=== PATIENT | female | born 1990 | race Caucasian/White ===

== ENCOUNTER 2016-08-18 14:29 | Emergency (ER) | payer OTHER ==
[2016-08-18] MEDS ORDERED: NS 0.9% 1000 ML* 1,000 ML IV ONE ×2 (14:46→15:42)
[2016-08-18] MEDS ORDERED: Ondansetron INJ* 2 MG/ML VIAL IV ONE (14:47)
[2016-08-18] MEDS ORDERED: Ketorolac INJ* 30 MG/ML 1 ML VIAL IV PUSH ONE (14:47)
--- NOTE | 2016-08-18 14:52 | UC ---
Headache HPI - HPI Summary HPI Summary: Patient is recovering form GI bug, started with a migraine 3 days aog, not well controlled with the usual imitrex. pain starts behind head radiates up to the right yazdanism. very nauseated has been vomiting this morning. feels flushed and shaky - History Of Current Complaint Chief Complaint: UCGeneralIllness Stated Complaint: HEAD PRESSURE Time Seen by Provider: 08/18/16 14:39 Hx Obtained From: Patient Hx Last Menstrual Period: 08/06/16 ?: No Onset/Duration: Sudden Onset, Lasting Days Onset Of Symptoms: Gradual, Still Present Initially Headache Was: Moderate Currently Pain Is: Severe Pain Intensity: 8 Pain Scale Used: 0-10 Numeric Timing: Constant, Days Character: Pressure, Migraine Location of Headache: Temporal, Occipital Aggravating Factor: Exertion, Position Change, Bright Lights Allevating Factors: Nothing Associated Signs And Symptoms: Positive: Nausea, Vomiting - Risk Factors SAH Risk Factors: Negative Meningitis Risk Factors: Negative - Allergies/Home Medications Allergies/Adverse Reactions: Allergies Allergy/AdvReac Type Severity Reaction Status Date / Time No Known Allergies Allergy Verified 08/18/16 14:39 Home Medications: Home Medications Oral Contraceptives DAILY 08/18/16 [History] SUMAtriptan TAB* [Imitrex TAB*] 50 mg PO 08/18/16 [History] PMH/Surg Hx/FS Hx/Imm Hx Previously Healthy: Yes - Surgical History Surgical History: Yes Surgery Procedure, Year, and Place: facial surgery. wisdom teeth. septic joint in the hand secondary to a cat bite - Family History Known Family History: Negative: Cardiac Disease, Hypertension - Social History Alcohol Use: Occasionally Substance Use Type: None Smoking Status (MU): Never Smoked Tobacco Review of Systems Constitutional: Negative Skin: Negative Eyes: Photophobia ENT: Negative Respiratory: Negative Cardiovascular: Negative Gastrointestinal: Vomiting Genitourinary: Negative Motor: Negative Neurovascular: Negative Musculoskeletal: Myalgia Neurological: Headache Psychological: Negative All Other Systems Reviewed And Are Negative: Yes Physical Exam Triage Information Reviewed: Yes Appearance: Well-Nourished, Ill-Appearing, Pain Distress Vital Signs: Initial Vital Signs Temp 98.6 F 08/18/16 14:30 Pulse 75 08/18/16 14:30 Resp 16 08/18/16 14:30 BP 130/87 08/18/16 14:30 Pulse Ox 100 08/18/16 14:30 Vital Signs Reviewed: Yes Eye Exam: Normal Eyes: Positive: Conjunctiva Clear ENT Exam: Normal ENT: Positive: Hearing grossly normal, Pharynx normal, TMs normal Dental Exam: Normal Neck: Positive: Supple, No Lymphadenopathy, Tenderness @ - long right trapezius Respiratory Exam: Normal Respiratory: Positive: Chest non-tender, Lungs clear, Normal breath sounds Cardiovascular Exam: Normal Cardiovascular: Positive: RRR, No Murmur, Pulses Normal Abdominal Exam: Other Abdomen Description: Positive: No Organomegaly, Soft, Bruit, Other: - epigastric tenderness Bowel Sounds: Positive: Present Musculoskeletal Exam: Normal Musculoskeletal: Positive: Strength Intact, ROM Intact, No Edema Neurological Exam: Normal Neurological: Positive: Alert, Muscle Tone Normal Psychological Exam: Normal Skin Exam: Normal Re-Evaluation - Re-Evaluation First Eval Re-Evaluation Time: 15:45 Change: Improved - reports slight improvement after 1st bag of fluids and meds, will do another bag Headache Course/Dx - Course Course Of Treatment: hx obtianed, exam performed, meds reviewed and iv fluids, zofranand toradol given ofr migraine relief, reported some improvement, encouraged to go home and rest. follow up with any worsening symptoms - Differential Dx/Diagnosis Differential Diagnosis/HQI/PQRI: Epidural Hematoma, Migraine, Sinus Headache, Temporal Arteritis, Tension Headache, Viral Syndrome Provider Diagnoses: MIgraine Discharge - Discharge Plan Condition: Stable Disposition: HOME Patient Education Materials: Migraine Headache (ED) Referrals: Bonita Ayala MD [Primary Care Provider] - Additional Instructions: Go home and rest, dark room, quiet, do not take ibuprofen products until 9 pm tonight. Peppermint has been shown to help with migraines. Take the compazine for nausea, it is also helpful in migraine reduction.
[2016-08-18] MEDS ORDERED: Prochlorperazine TAB* 10 MG PO ONE (16:17)
[2016-08-18] MEDS ORDERED: Prochlorperazine TAB* 5 MG PO ONE (16:24)
[2016-08-18 16:45] VITALS: BP 133/84
== END 2016-08-18 16:45 | disposition home or self-care (01) ==
LOC: UCCORT 14:29
DX: G43.909 Migraine, unspecified, not intractable, without status migrainosus (principal)
CPT/HCPCS: 96361; 96374; 96375; 99202; A9270-GY; G0463; J1885; J2405; Q0164